=== PATIENT | male | born 1945 | race Caucasian/White ===

== ENCOUNTER 2022-08-27 13:40 | Inpatient (IN) | payer MEDICARE, OTHER ==
[2022-08-27] MEDS ORDERED: Bisacodyl 5 MG TAB PO PRN ×2 (14:38→16:09)
[2022-08-27] MEDS ORDERED: Senokot S 8.6-50 MG TAB PO PRN (14:38)
[2022-08-27] MEDS ORDERED: Bisacodyl 10 MG SUPP PR PRN (14:38)
[2022-08-27] MEDS ORDERED: Acetaminophen 325 MG TAB PO PRN (14:38)
[2022-08-27] MEDS ORDERED: diphenhydrAMINE 25 MG CAP PO PRN (14:41)
[2022-08-27 15:32] VITALS: BMI 25.2
[2022-08-27] MEDS ORDERED: traMADol HCl 50 MG TAB PO PRN (15:48)
[2022-08-27] MEDS ORDERED: Milk Of Magnesia 30 ML UDCUP PO PRN (16:52)
[2022-08-27] MEDS: methylPREDNISolone Sod Succ 40 MG VIAL IVP SCH (17:13)
[2022-08-27] MEDS ORDERED: Cetirizine HCl 10 MG TAB PO SCH (21:00)
[2022-08-27] MEDS ORDERED: Senokot S 8.6-50 MG TAB PO SCH (21:00)
[2022-08-27] MEDS: Famotidine 20 MG TAB PO SCH (22:11)
[2022-08-27] MEDS: Rosuvastatin 20 MG TAB PO SCH (22:11)
[2022-08-27] MEDS: Loratadine 10 MG TAB PO SCH (22:11)
[2022-08-27] MEDS: Famotidine/PF 20 mg/2ml Vial SLOW IVP SCH (22:32)
[2022-08-28] MEDS: methylPREDNISolone Sod Succ 40 MG VIAL IVP SCH ×2 (00:07→05:38)
[2022-08-28 05:09] LABS: #Monocytes 0.1 10x3/uL (0.0-1.1); #Neutrophils 10.1 10x3/uL (1.5-8.4); %Basophils 0.1 % (0.0-2.0); %Lymphocytes 12.9 % (18.0-47.0); %Monocytes 0.9 % (0.0-10.0); %Neutrophils 85.7 % (40.0-75.0); Hemoglobin 12.3 g/dL (13.5-17.5); Mean Corpuscular HGB CONC 34.5 g/dL (32.0-36.0); Mean Corpuscular Hemoglobin 30.4 pg (27.0-33.0); Mean Corpuscular Volume 88.1 fl (81.2-95.1); Mean Platelet Volume 9.2 fl (7.4-10.4); Platelet Count 198 10x3/uL (150-450); RBC Distribution Width 15.4 % (11.5-14.5); Red Blood Cell (RBC) Count 4.05 10x6/uL (4.32-5.72); White Blood Cell (WBC) Count 11.8 10x3/uL (3.5-10.5)
[2022-08-28 05:28] LABS: ALT (SGPT) 18 U/L (8-55); AST (SGOT) 13 U/L (5-34); Albumin 3.6 g/dL (3.4-4.8); Alkaline Phosphatase 76 U/L (40-110); Anion Gap 13 mmol/L (10-20); BUN (Urea Nitrogen) 15 mg/dL (8.4-25.7); Bilirubin, Direct 0.2 mg/dL (0.1-0.3); Bilirubin, Total 0.4 mg/dL (0.2-1.2); Calc. Creatinine Clearance 85 mL/min (70-130); Calcium 9.1 mg/dL (7.8-10.44); Carbon Dioxide 20 mmol/L (23-31); Cardiac Risk 2.1 (Less than 4.5); Chloride 106 mmol/L (98-107); Cholesterol 121 mg/dl (< 200 Desired); Estimated GFR 90; Glucose 153 mg/dL (83-110); HDL Cholesterol 58 mg/dL (>60 Neg Risk); LDL Cholesterol, Calculated 56 mg/dL; Magnesium 1.9 mg/dL (1.6-2.6); Potassium 4.1 mmol/L (3.5-5.1); Protein, Total 6.1 g/dL (5.8-8.1); Sodium 135 mmol/L (136-145); Triglycerides 34 mg/dL (Less than 150)
[2022-08-28] MEDS ORDERED: Loratadine 10 MG TAB PO SCH (09:00)
[2022-08-28] MEDS: Enoxaparin Sodium 40 MG/0.4 ML SYRINGE SC SCH (09:21)
[2022-08-28] MEDS: Famotidine 20 MG TAB PO SCH ×2 (09:22→20:38)
[2022-08-28] MEDS: Tamsulosin HCl 0.4 MG CAP PO SCH (09:22)
[2022-08-28] MEDS: Aspirin 81 mg Enteric Coated Tablet PO SCH (09:22)
[2022-08-28] MEDS: Loratadine 10 MG TAB PO SCH ×2 (09:22→20:38)
[2022-08-28] MEDS: Famotidine/PF 20 mg/2ml Vial SLOW IVP SCH ×2 (09:22→19:45)
[2022-08-28 13:11] LABS: Hemoglobin A1c 5.5 % (4.0-6.0)
[2022-08-28] MEDS: Rosuvastatin 20 MG TAB PO SCH (20:38)
[2022-08-28] MEDS: traMADol HCl 50 MG TAB PO PRN (20:39)
[2022-08-29 05:06] LABS: #Monocytes 0.8 10x3/uL (0.0-1.1); #Neutrophils 9.4 10x3/uL (1.5-8.4); %Basophils 0.2 % (0.0-2.0); %Eosinophils 0.1 % (0.0-6.0); %Lymphocytes 22.6 % (18.0-47.0); %Monocytes 6.2 % (0.0-10.0); %Neutrophils 70.4 % (40.0-75.0); Hemoglobin 11.6 g/dL (13.5-17.5); Mean Corpuscular HGB CONC 34.5 g/dL (32.0-36.0); Mean Corpuscular Hemoglobin 30.8 pg (27.0-33.0); Mean Corpuscular Volume 89.1 fl (81.2-95.1); Mean Platelet Volume 9.1 fl (7.4-10.4); Platelet Count 170 10x3/uL (150-450); RBC Distribution Width 15.8 % (11.5-14.5); Red Blood Cell (RBC) Count 3.77 10x6/uL (4.32-5.72); White Blood Cell (WBC) Count 13.3 10x3/uL (3.5-10.5)
[2022-08-29 05:15] LABS: Anion Gap 12 mmol/L (10-20); BUN (Urea Nitrogen) 17 mg/dL (8.4-25.7); Calc. Creatinine Clearance 83 mL/min (70-130); Calcium 8.6 mg/dL (7.8-10.44); Carbon Dioxide 24 mmol/L (23-31); Chloride 106 mmol/L (98-107); Estimated GFR 90; Glucose 103 mg/dL (83-110); Potassium 4.5 mmol/L (3.5-5.1); Sodium 137 mmol/L (136-145)
[2022-08-29] MEDS: Loratadine 10 MG TAB PO SCH ×2 (08:37→21:01)
[2022-08-29] MEDS: Enoxaparin Sodium 40 MG/0.4 ML SYRINGE SC SCH (08:37)
[2022-08-29] MEDS: Famotidine 20 MG TAB PO SCH ×2 (08:37→21:01)
[2022-08-29] MEDS: Aspirin 81 mg Enteric Coated Tablet PO SCH (08:38)
[2022-08-29] MEDS: Tamsulosin HCl 0.4 MG CAP PO SCH (08:38)
[2022-08-29] MEDS: Famotidine/PF 20 mg/2ml Vial SLOW IVP SCH ×2 (08:39→21:01)
[2022-08-29] MEDS: traMADol HCl 50 MG TAB PO PRN (08:43)
[2022-08-29] MEDS: predniSONE 50 MG TAB PO SCH ×2 (09:31→15:00)
[2022-08-29] MEDS: Rosuvastatin 20 MG TAB PO SCH (21:01)
[2022-08-30 04:35] LABS: #Eosinphils 0.1 10x3/uL (0.0-0.5); #Monocytes 0.7 10x3/uL (0.0-1.1); #Neutrophils 3.4 10x3/uL (1.5-8.4); %Basophils 0.3 % (0.0-2.0); %Eosinophils 0.8 % (0.0-6.0); %Lymphocytes 42.7 % (18.0-47.0); %Neutrophils 46.6 % (40.0-75.0); Mean Corpuscular HGB CONC 33.8 g/dL (32.0-36.0); Mean Corpuscular Hemoglobin 30.4 pg (27.0-33.0); Mean Corpuscular Volume 89.9 fl (81.2-95.1); Mean Platelet Volume 9.2 fl (7.4-10.4); Platelet Count 176 10x3/uL (150-450); RBC Distribution Width 15.8 % (11.5-14.5); Red Blood Cell (RBC) Count 3.95 10x6/uL (4.32-5.72); White Blood Cell (WBC) Count 7.2 10x3/uL (3.5-10.5)
[2022-08-30 04:42] LABS: Anion Gap 12 mmol/L (10-20); BUN (Urea Nitrogen) 23 mg/dL (8.4-25.7); Calc. Creatinine Clearance 81 mL/min (70-130); Calcium 8.4 mg/dL (7.8-10.44); Carbon Dioxide 24 mmol/L (23-31); Chloride 104 mmol/L (98-107); Estimated GFR 89; Glucose 99 mg/dL (83-110); Magnesium 1.9 mg/dL (1.6-2.6); Potassium 4.2 mmol/L (3.5-5.1); Sodium 136 mmol/L (136-145)
[2022-08-30 07:23] VITALS: BP 136/75; TEMP 97.6
[2022-08-30] MEDS: Famotidine 20 MG TAB PO SCH (08:41)
[2022-08-30] MEDS: Enoxaparin Sodium 40 MG/0.4 ML SYRINGE SC SCH (08:41)
[2022-08-30] MEDS: Loratadine 10 MG TAB PO SCH (08:41)
[2022-08-30] MEDS: Aspirin 81 mg Enteric Coated Tablet PO SCH (08:41)
[2022-08-30] MEDS: Tamsulosin HCl 0.4 MG CAP PO SCH (08:42)
[2022-08-30] MEDS: traMADol HCl 50 MG TAB PO PRN (08:42)
[2022-08-30] MEDS: predniSONE 50 MG TAB PO SCH (08:44)
[2022-08-30] MEDS: Famotidine/PF 20 mg/2ml Vial SLOW IVP SCH (08:45)
[2022-08-31 20:36] LABS: Tryptase 5.5 ug/L (2.2-13.2)
== END 2022-08-30 10:40 | disposition home or self-care (01) | DRG 916 ==
LOC: SUATTDRO 13:40 → CSHERS 13:40 → CSHTELE 15:03 → OBSVTOIN 08-28 17:24
PROVIDERS: ADMIT Family Medicine; ATTEND Internal Medicine
PROC: 30233K1 Transfusion of Nonautologous Frozen Plasma into Peripheral Vein, Percutaneous Approach (ICD-10-PCS; principal; 2022-08-27)
PROC: 3E033XZ Introduction of Vasopressor into Peripheral Vein, Percutaneous Approach (ICD-10-PCS; 2022-08-27)
DX: T78.3XXA Angioneurotic edema, initial encounter (principal); I25.10 Atherosclerotic heart disease of native coronary artery without angina pectoris; E78.5 Hyperlipidemia, unspecified; N40.0 Benign prostatic hyperplasia without lower urinary tract symptoms; Z20.822 Contact with and (suspected) exposure to COVID-19; Z95.5 Presence of coronary angioplasty implant and graft; Z79.82 Long term (current) use of aspirin; Z79.899 Other long term (current) drug therapy; Z96.651 Presence of right artificial knee joint; Z79.52 Long term (current) use of systemic steroids
CPT/HCPCS: 36415; 36430; 71045; 80048; 80053; 80061; 80076; 82785; 83036; 83519; 83735; 84443; 85025; 85652; 86140; 86160; 86161; 86850; 86900; 86901; 93005; 93010; 94625; 96372; 96374; 96375; 96376; G0103; G0378; J1650; J2920; J7512; P9059; U0003; U0005

== ENCOUNTER 2022-09-08 01:17 | Observation (INO) | payer MEDICARE, OTHER ==
[2022-09-08] MEDS ORDERED: EPINEPHrine 1 MG/ML AMP ONE (01:41)
[2022-09-08] MEDS ORDERED: diphenhydrAMINE 50 MG/ML VIAL ONE ×2 (01:50→08:29)
[2022-09-08] MEDS ORDERED: methylPREDNISolone Sod Succ/PF 125 MG/2 ML VIAL ONE (01:50)
[2022-09-08] MEDS ORDERED: Famotidine/PF 20 mg/2ml Vial ONE ×2 (01:51→08:29)
[2022-09-08] MEDS ORDERED: Ondansetron PF 4 MG/2 ML Vial IVP PRN (02:32)
[2022-09-08 02:38] LABS: #Eosinphils 0.2 10x3/uL (0.0-0.5); #Monocytes 0.5 10x3/uL (0.0-1.1); #Neutrophils 5.9 10x3/uL (1.5-8.4); %Basophils 0.4 % (0.0-2.0); %Eosinophils 1.6 % (0.0-6.0); %Lymphocytes 30.1 % (18.0-47.0); %Monocytes 5.1 % (0.0-10.0); %Neutrophils 62.3 % (40.0-75.0); Hemoglobin 12.7 g/dL (13.5-17.5); Mean Corpuscular HGB CONC 34.1 g/dL (32.0-36.0); Mean Corpuscular Hemoglobin 30.5 pg (27.0-33.0); Mean Corpuscular Volume 89.4 fl (81.2-95.1); Mean Platelet Volume 9.6 fl (7.4-10.4); Platelet Count 151 10x3/uL (150-450); RBC Distribution Width 16.1 % (11.5-14.5); Red Blood Cell (RBC) Count 4.16 10x6/uL (4.32-5.72); White Blood Cell (WBC) Count 9.5 10x3/uL (3.5-10.5)
[2022-09-08 02:44] LABS: SARS-CoV-2 NAA Rapid Test Not Detected (NotDetected)
[2022-09-08 02:44] LABS: Anion Gap 11 mmol/L (10-20); BUN (Urea Nitrogen) 22 mg/dL (8.4-25.7); Calc. Creatinine Clearance 0 mL/min (70-130); Calcium 9.1 mg/dL (7.8-10.44); Carbon Dioxide 21 mmol/L (23-31); Chloride 107 mmol/L (98-107); Estimated GFR 90; Glucose 98 mg/dL (83-110); Potassium 4.2 mmol/L (3.5-5.1); Sodium 135 mmol/L (136-145)
[2022-09-08] MEDS ORDERED: Lactated Ringer's 1,000 ML IV SCH (05:30)
[2022-09-08] MEDS ORDERED: Metoprolol Tartrate 5 MG/5 ML VIAL ONE (07:46)
[2022-09-08] MEDS ORDERED: methylPREDNISolone Sod Succ 40 MG VIAL ONE (07:50)
[2022-09-08] MEDS: Metoprolol Tartrate 5 MG/5 ML VIAL IVP SCH ×2 (07:50→18:45)
[2022-09-08] MEDS: methylPREDNISolone Sod Succ 40 MG VIAL IVP SCH ×3 (08:00→20:35)
[2022-09-08] MEDS: diphenhydrAMINE 50 MG/ML VIAL IVP SCH ×2 (08:40→20:40)
[2022-09-08] MEDS: Famotidine/PF 20 mg/2ml Vial SLOW IVP SCH ×2 (08:42→20:34)
[2022-09-08] MEDS ORDERED: Racepinephrine 2.25% 0.5 ML NEB ONE (09:50)
[2022-09-08] MEDS ORDERED: FLU VACC QS2022-23(65YR UP)/PF 240 MCG/0.7 ML SYRINGE IM ONE (20:00)
[2022-09-08] MEDS: TICAGRELOR 90 MG TABLET PO SCH (20:37)
[2022-09-08] MEDS ORDERED: Rosuvastatin 20 MG TAB PO SCH (21:00)
[2022-09-09 03:13] VITALS: BMI 24.3
[2022-09-09 08:34] VITALS: BP 144/65; TEMP 97.8
[2022-09-09] MEDS: diphenhydrAMINE 50 MG/ML VIAL IVP SCH (08:51)
[2022-09-09] MEDS: methylPREDNISolone Sod Succ 40 MG VIAL IVP SCH (08:51)
[2022-09-09] MEDS: Famotidine/PF 20 mg/2ml Vial SLOW IVP SCH (08:51)
[2022-09-09] MEDS: TICAGRELOR 90 MG TABLET PO SCH (08:52)
[2022-09-09] MEDS ORDERED: Aspirin 81 mg Enteric Coated Tablet PO SCH (09:00)
[2022-09-09] MEDS ORDERED: Tamsulosin HCl 0.4 MG CAP PO SCH (09:00)
== END 2022-09-09 10:35 | disposition home or self-care (01) ==
LOC: CSHERS 01:17 → CSHERHOLD 02:32 → CSHTELE 15:03
PROVIDERS: ADMIT Student in an Organized Health Care Education/Training Program; ATTEND Family Medicine
DX: T78.3XXA Angioneurotic edema, initial encounter (principal); I25.10 Atherosclerotic heart disease of native coronary artery without angina pectoris; E78.5 Hyperlipidemia, unspecified; I49.9 Cardiac arrhythmia, unspecified; N40.0 Benign prostatic hyperplasia without lower urinary tract symptoms; Z20.822 Contact with and (suspected) exposure to COVID-19; Z95.5 Presence of coronary angioplasty implant and graft; Z96.651 Presence of right artificial knee joint; Z79.82 Long term (current) use of aspirin; Z79.899 Other long term (current) drug therapy
CPT/HCPCS: 80048; 85025; 86850; 86900; 86901; 94760; 96372; 96374; 96375 ×2; 96376 ×2; 99285; G0378 ×3; U0002; J0171; J1200; J2920; J2930; J7120; S0028